=== PATIENT | female | born 1950 | race Caucasian/White ===

== ENCOUNTER → 2016-04-21 | Outpatient (CLI) | payer MEDICAID ==
[~2016-04-21] MED LIST: ALBUTEROL0.09 MG/A2 IH; ALBUTEROL2.5 MG/0.5 INH; AMITRIPTYLINE10 MG PO; ASMANEX220 MCG INH; AUGMENTIN 875-875 MG PO; CHILDREN'S CLEA10 MG PO; CIPRO250 MG PO; CLEOCIN150 MG PO; CRESTOR10 MG; CYCLOBENZAPRINE10 MG PO; DEXILANT60 M1 PO; DULERA 200 MCG8.8 GM IH; DUONEB 3 MG/3 ML3 M1 INH; FLEXERIL10 MG PO; HYDROCODONE BIT1 T11 PO; K-DUR20 MEQ PO; KCL; LORATADINE10 M1; MAGNESIUM400 MG PO; MAXZIDE 25 MG-31 TAB PO; METFORMIN500 MG PO; MIRALAX POWDER17 G1 PO; MOBIC15 MG PO; NEBULIZER; NORVASC5 MG PO; OMNICEF300 MG PO; POTASSIUM CHLO10 ME5 PO; POTASSIUM20 MEQ PO; PREDNICOT20 MG PO; PREDNISONE10 MG PO; PRILOSEC40 M1 PO; PYRIDIUM200 MG PO; RESTASIS0.05% OPH; SINGULAIR10 MG PO; TESSALON PERLE200 MG PO; VENTOLIN H0.09 MG/AC INH; VICODIN ES 7501 TA1 PO; WARFARIN SODIUM5 MG; ZIAC 2.5 MG-6.25 MG; ZIAC 5 MG-6.251 TAB PO; ZITHROMAX Z PA250 MG PO; ZITHROMAX250 MG PO; ZOLOFT25 MG PO; ZYVOX600 MG PO; [UNRECOGNIZED DRUG - OTHER]
[2016-04-21 09:46] LABS: BILIRUBIN NEGATIVE (NEGATIVE); BLOOD NEGATIVE (NEGATIVE); CLARITY SL CLOUDY (CLEAR); COLOR YELLOW (YELLOW); GLUCOSE NEGATIVE (NEGATIVE); KETONE NEGATIVE (NEGATIVE); LEUKO ESTERASE NEGATIVE (NEGATIVE); NITRITE NEGATIVE (NEGATIVE); PH 6.5 (5.0-9.0); PROTEIN NEGATIVE (NEGATIVE); UROBILINOGEN 0.2 E.U./dl (0.2-1.0)
[2016-04-21 09:58] LABS: ALBUMIN 3.9 gm/dl (3.1-4.5); ALKALINE PHOSPHATASE 125 U/L (45-117); BILIRUBIN, DIRECT < 0.1 mg/dL (0.0-0.2); BILIRUBIN, TOTAL 0.4 mg/dl (0.2-1.0); BUN 17 mg/dl (7-24); CARBON DIOXIDE 33 mmol/L (21-32); CHLORIDE 102 mmol/L (98-107); CHOLESTEROL 296 mg/dL (<200); EST GLOM FILT AFRICAN AMERICAN > 60 ml/min; GLUCOSE 124 mg/dL (65-99); HDL CHOLESTEROL 52 mg/dl (40-60); LDL CHOLESTEROL 205 mg/dL (9-159); POTASSIUM 4.1 mmol/L (3.5-5.1); SGOT/AST 15 IU/L (3-35); SGPT/ALT 26 U/L (12-78); SODIUM 143 mmol/L (136-145); TOTAL PROTEIN 7.2 gm/dL (6.4-8.2); TRIGLYCERIDES 195 mg/dl (<150); VLDL CHOLESTEROL 39 mg/dL (6-40)
[2016-04-21 10:21] LABS: HEMOGLOBIN A1c 6.4 % (4.8-5.6)
[2016-04-21 10:23] LABS: BACTERIA 2+; EPITHELIAL CELLS 15-20; MUCOUS 2+
== END | disposition home or self-care (01) ==
LOC: LAB 09:03
PROVIDERS: Internal Medicine
DX: E11.65 Type 2 diabetes mellitus with hyperglycemia (principal); E87.6 Hypokalemia; E55.9 Vitamin D deficiency, unspecified; E78.5 Hyperlipidemia, unspecified

== ENCOUNTER → 2016-12-19 | Outpatient (CLI) | payer OTHER ==
[2016-12-19 09:32] LABS: BASO # 0.1 10*3/uL (0.0-0.1); BASO % 0.6 % (0.0-1.0); EOS # 0.3 10*3/uL (0.0-0.4); EOS % 3.8 % (1.0-4.0); HEMATOCRIT 42.7 % (37.0-47.0); HEMOGLOBIN 14.1 g/dl (12.0-16.0); LYMPH # 3.7 10*3/uL (1.3-4.4); LYMPH % 46.2 % (27.0-41.0); MEAN CELL VOLUME 84.9 fl (81.0-99.0); MEAN PLATELET VOLUME 10.1 fl (9.6-12.3); MONO # 0.6 10*3/uL (0.1-1.0); MONO % 7.2 % (3.0-9.0); NEUT # 3.4 10*3/uL (2.3-7.9); NEUT % 42.1 % (47.0-73.0); PLATELET COUNT AUTOMATED 288 10*3/uL (130-400); RED BLOOD COUNT 5.03 10*6/uL (4.10-5.10); RED CELL DISTRI WIDTH 12.8 % (0-14.5); WHITE BLOOD COUNT 8.1 10*3/uL (4.8-10.8)
[2016-12-19 09:54] LABS: ALKALINE PHOSPHATASE 137 U/L (45-117); BILIRUBIN, DIRECT < 0.1 mg/dL (0.0-0.2); BUN 17 mg/dl (7-24); CHLORIDE 101 mmol/L (98-107); CHOLESTEROL 314 mg/dL (<200); CREATININE 0.78 mg/dL (0.55-1.02); HDL CHOLESTEROL 48 mg/dl (40-60); LDL CHOLESTEROL 228 mg/dL (9-159); SGOT/AST 21 IU/L (3-35); SGPT/ALT 30 U/L (12-78); SODIUM 140 mmol/L (136-145); THYROXINE (T4) TOTAL 11.3 ug/dl (4.8-13.9); TOTAL PROTEIN 7.7 gm/dL (6.4-8.2); TRIGLYCERIDES 188 mg/dl (<150); VLDL CHOLESTEROL 38 mg/dL (6-40)
== END | disposition home or self-care (01) ==
LOC: LAB 09:07
PROVIDERS: Family Medicine
DX: I10 Essential (primary) hypertension (principal); E11.9 Type 2 diabetes mellitus without complications

== ENCOUNTER → 2017-07-16 | Outpatient (CLI) | payer OTHER ==
[2017-07-16 09:26] LABS: BASO # 0.1 10*3/uL (0.0-0.1); BASO % 0.8 % (0.0-1.0); EOS # 0.3 10*3/uL (0.0-0.4); EOS % 2.7 % (1.0-4.0); HEMATOCRIT 43.9 % (37.0-47.0); HEMOGLOBIN 14.7 g/dl (12.0-16.0); LYMPH % 52.4 % (27.0-41.0); MEAN CELL VOLUME 83.9 fl (81.0-99.0); MEAN CORPUSCULAR HGB 28.1 pg (27.0-31.0); MEAN CORPUSCULAR HGB CONC 33.5 g/dl (33.0-37.0); MEAN PLATELET VOLUME 9.9 fl (9.6-12.3); MONO # 0.6 10*3/uL (0.1-1.0); MONO % 6.7 % (3.0-9.0); NEUT # 3.5 10*3/uL (2.3-7.9); NEUT % 36.9 % (47.0-73.0); PLATELET COUNT AUTOMATED 277 10*3/uL (130-400); RED BLOOD COUNT 5.23 10*6/uL (4.10-5.10); RED CELL DISTRI WIDTH 12.9 % (0-14.5); WHITE BLOOD COUNT 9.5 10*3/uL (4.8-10.8)
[2017-07-16 09:39] LABS: ALBUMIN 3.8 gm/dl (3.1-4.5); ALKALINE PHOSPHATASE 130 U/L (45-117); BILIRUBIN, DIRECT < 0.1 mg/dL (0.0-0.2); BUN 14 mg/dl (7-24); CHLORIDE 102 mmol/L (98-107); CHOLESTEROL 309 mg/dL (<200); CREATININE 0.72 mg/dL (0.55-1.02); HDL CHOLESTEROL 45 mg/dl (40-60); LDL CHOLESTEROL 220 mg/dL (9-159); SGOT/AST 19 IU/L (3-35); SGPT/ALT 31 U/L (12-78); SODIUM 142 mmol/L (136-145); TOTAL PROTEIN 7.5 gm/dL (6.4-8.2); TRIGLYCERIDES 218 mg/dl (<150); VLDL CHOLESTEROL 44 mg/dL (6-40)
== END | disposition home or self-care (01) ==
LOC: LAB 08:51
PROVIDERS: Family Medicine
DX: E11.9 Type 2 diabetes mellitus without complications (principal); I10 Essential (primary) hypertension; E55.9 Vitamin D deficiency, unspecified; E87.6 Hypokalemia

== ENCOUNTER → 2018-01-10 | Outpatient (CLI) | payer OTHER | END | disposition home or self-care (01) | LOC: CT 12:51 | DX: M48.02 Spinal stenosis, cervical region (principal); R90.82 White matter disease, unspecified; M79.601 Pain in right arm; R51 Headache ==

== ENCOUNTER → 2018-04-18 | Outpatient (CLI) | payer OTHER ==
[2018-04-19 07:07] LABS: HEPATITIS B SURFACE AG Negative (Negative); HEPATITIS C VIRUS ANTIBODY <0.1 s/co (0.0-0.9)
== END | disposition home or self-care (01) ==
LOC: LAB 09:09 → US 09:30
PROVIDERS: Internal Medicine
DX: R94.5 Abnormal results of liver function studies (principal); E11.9 Type 2 diabetes mellitus without complications; I10 Essential (primary) hypertension; E78.5 Hyperlipidemia, unspecified

== ENCOUNTER 2018-07-02 08:49 | Inpatient (IN) | payer OTHER ==
[~2018-07-02] VITALS: Ht 167.6 cm; Wt 76.2 kg
--- NOTE | ~2018-07-02 | PR ---
[place], [place] PROGRESS NOTE [id number] #: [id number] ROOM: 520 DOCTOR: KOLBY DAVID MD,DAVID BIRTHDATE: [birth year] DOS: 07/04/2018 PULMONARY PROGRESS NOTE SUBJECTIVE: The patient noted comfortable at this time, resting in the bed, has not been noted any ongoing acute complaints this morning. Shortness of breath and cough. The patient noted the symptoms have been progressively resolving. Sputum expectoration noted small at this time. She has reported significant improvement in respiratory symptoms in past 24 hours of current medical management. OBJECTIVE: VITAL SIGNS: Normal temperature, respiratory rate 20, heart rate 96, blood pressure 60/88, pulse oxygen saturation on room air is 95% saturation. HEENT: Head was atraumatic. Eyes nonicterus. NECK: Supple. CARDIOVASCULAR: S1, S2 audible. LUNGS: Without any wheeze or crackles. ABDOMEN: Soft, nontender. Bowel sounds present. EXTREMITIES: No acute change. IMPRESSION: Progressive resolution improvement of the acute exacerbation of bronchial asthma and acute bronchitis with current medical management. Influenza virus assessment, the patient noted negative. The respiratory virus panel was also ordered, at this time was not available. Sputum culture was also ordered, which was received by the lab yesterday, but no reports has been available. Gram stain and culture. PLAN OF TREATMENT: The patient could be discharged home on empiric antibiotic, tapering dose of prednisone. Outpatient followup cultures need to be monitored to make any other additional changes. DAVID JARRETT MD CM:PNTRANS [id number] DAVID DAVID MD 07/15/18 1109 interface
--- NOTE | ~2018-07-02 | DS ---
[place], [place] DISCHARGE SUMMARY NAME: WICHO AWAN [facility] #: [id number] UNIT #: [id number] ROOM: 520 DOCTOR: JAMI EASON MD BIRTHDATE: [birth year] DOS: 07/04/2018 DIAGNOSES: 1. Severe persistent asthma with acute exacerbation. 2. Chronic atrial fibrillation, on long-term use of anticoagulants. 3. Benign hypertension. 4. History of obstructive sleep apnea. 5. Hyperlipidemia. DISCHARGE MEDICATIONS: Same as on admission. The new prescriptions given were tapering dose of prednisone and doxycycline 100 b.i.d. Medications same as admission includes Ventolin p.r.n., Dulera 200 daily, DuoNeb q 4h., amitriptyline 10 daily, Eliquis 5 b.i.d., Dexilant 60 daily, loratadine 10 daily, mag oxide 400 daily, metformin 250 b.i.d., montelukast 10 daily, Rythmol 150 q. 8h, rivastigmine 1.5 b.i.d., and simvastatin 5 mg at bedtime. HOSPITAL COURSE: The patient is a 67-year-old who comes in with complaints of cough and shortness of breath. The patient has received both outpatient steroids and antibiotics without much improvement, continued to complain of cough and so she was brought to the office. She was found to have significant bronchospasm and tachypnea. She was admitted. After admission, she was placed on IV steroids and antibiotics. Chest x-ray and routine labs ordered. Dr. Ricci was consulted. Continue on her home medications. She has improved very well. The bronchospasm has resolved. Chest x-ray is negative. Flu titer was negative. Routine labs were also normal. The patient is stable. Plan is to discharge her to home today to follow up as an outpatient. JAMI EASON MD CM:HUGO [id number] JAMI EASON MD 07/04/18 1124 interface
--- NOTE | ~2018-07-02 | CON ---
[place], [place] REPORT OF CONSULTATION NAME: WICHO AWAN [facility] #: [id number] UNIT #: [id number] ROOM: 520 DOCTOR: DAVID GUTIÉRREZ MD BIRTHDATE: [birth year] DOS: 07/03/2018 PULMONARY CONSULTATION, EVALUATION AND MANAGEMENT REASON FOR CONSULTATION: Assessment of nonresolving acute exacerbation of bronchial asthma, failed outpatient treatment. CONSULTATION REQUESTED BY: Dr. Anju Shi. HISTORY OF PRESENT ILLNESS: This is a 67-year-old white female patient with known history of complicated severe persistent bronchial asthma, allergic rhinitis, has been seen in my office regularly. She has been seen in the office. The patient's last visit was on 06/13/2018. The patient has been getting symptoms of coughing, chest congestion intermittently. She has been treated with the respiratory medication as Ceftin and Tessalon Perles. Previously, she has taken Diflucan for the oral thrush as well and also received antibiotic, corticosteroids by the primary care physician. The patient has been admitted to the hospital as the patient presented to the Emergency Room, her symptoms of shortness of breath has been noted gradually worsening. The cough has been reported with small amount of greenish sputum expectoration, which were noted previously clear. She denies symptoms of fever or chills. She does have symptoms of shortness of breath and wheezing associated with current symptoms. The patient has been assessed in the Emergency Room and hospital under care of Dr. Anju Shi on 07/03/2018, early this morning. She has not reported any changes in the symptoms except partial improvement reported for the last few hours of hospitalization. Other symptom as stated, remains unchanged. PAST MEDICAL HISTORY: 1. History of uncomplicated severe persistent bronchial asthma. 2. Allergic rhinitis. 3. Essential hypertension. 4. Type 2 diabetes mellitus. 5. Obstructive sleep apnea disorder. 6. Gastroesophageal reflux. 7. Permanent atrial fibrillation. 8. Hypercholesterolemia. 9. Mild to moderate obesity. PAST SURGICAL HISTORY: 1. Tubal ligation. 2. Fusion of the cervical neck. 3. Right hand ORIF. 4. Hemorrhoidectomy. SOCIAL HISTORY: The patient is and lives at home. She has four children. The patient has been noted with tobacco use, started at age [age] years old, 2 packs of cigarettes per day until 1994. FAMILY HISTORY: This patient's father history was unknown. Mother patient at 52-year-old with complication of stroke. [place], [place] REPORT OF CONSULTATION NAME: WICHO AWAN [facility] #: [id number] UNIT #: [id number] ROOM: [facility] DOCTOR: DAVID GUTIÉRREZ MD BIRTHDATE: [birth year] HOME MEDICATIONS: The patient used on a regular basis Norvasc, Singulair, Restasis metformin, amitriptyline, inhaler, Flonase, Arnuity Ellipta, Ventolin HFA, rivastigmine, Dexilant, simvastatin, Claritin, Eliquis, propafenone, metoprolol tartrate, and albuterol nebulizer. Current medications which has been started on this admission, use of all the home medications and besides that Solu-Medrol 30 mg every 8 hours, albuterol sulfate, levalbuterol q. 6 hours. The patient was also receiving the Zithromax. DRUG ALLERGIES: 1. PERCOCET. 2. DOXYCYCLINE. 3. BACTRIM. PHYSICAL EXAMINATION: GENERAL: The patient is a 67-year-old female, currently sitting on the bed without any distress this morning. Height of 5 feet 6 inches, weight 168 pounds, BMI 27. VITAL SIGNS: Normal temperature, respiratory rate of 20, heart rate 90, blood pressure 137/88 - 142/80. Pulse oxygen saturation recorded at rest on room air 94% saturation. HEENT: Head was atraumatic. Eyes nonicterus. NECK: Supple. CARDIOVASCULAR: S1, S2 is audible. LUNGS: The patient was noted with decreased breath sounds, [id number] expiratory wheezing. There were no crackles. ABDOMEN: Soft, nontender. Moderate obesity, bowel sounds present. EXTREMITIES: No edema. MUSCULOSKELETAL: Without any deformities. CENTRAL NERVOUS SYSTEM: Cranial nerves 2-12 intact. SKIN: No lesions or rashes. LABORATORY DATA: The patient's chest x-ray, which was done yesterday has no acute pulmonary infiltration. BMP this morning, glucose 189, BUN and creatinine normal. CBC this morning, WBC count 10.3, hemoglobin and hematocrit normal. The eosinophils was noted as 0.1%. IMPRESSION: 1. Acute exacerbation of bronchial asthma, acute tracheobronchitis, failed outpatient treatment, noted current cough with sputum expectoration: 2. The patient with history of allergic rhinitis and obstructive sleep apnea disorder. PLAN OF TREATMENT: Continue the intravenous Solu-Medrol and the antibiotics. Respiratory culture was ordered for the current assessment. Respiratory virus panel also to be done to exclude any viral etiology of the patient's current acute persistent bronchitis, not resolving. Influenza nasopharyngeal swab will be also taken as well. Additional treatment changes will be ordered based on the progression of the illness. [place], [place] REPORT OF CONSULTATION NAME: WICHO AWAN UNIT #: [id number] ROOM: [facility] DOCTOR: KOLBY DAVID MD,DAVID BIRTHDATE: [birth year] Thank you for allowing me to participate in the care of this patient. DAVID JARRETT MD CM:CONSTR:REPORT OF CONSULTATION 1502 07/15/18 1107 interface
--- NOTE | ~2018-07-02 | WRIGHTHP ---
[place], [place] PATIENT HISTORY AND PHYSICAL EXAM NAME: WICHO AWAN [facility] #: [id number] UNIT #: [id number] ROOM: 520 DOCTOR: JAMI EASON MD BIRTHDATE: [birth year] DOS: 07/03/2018 HISTORY OF PRESENT ILLNESS: This patient is very well known to us. She comes in with complaints of cough and increasing difficulty breathing. The patient states that she has been on antibiotics twice, was treated by Dr. Ricci then she was seen by [facility] and was given steroids, antibiotics, and continued to get worse. She denies having any chest pains, palpitations, does not have any fever or chills, has a cough, which is productive of scant amounts of sputum. PAST MEDICAL HISTORY: Significant for: 1. Chronic atrial fibrillation with recent hospitalization. 2. Bronchial asthma. 3. Benign hypertension. 4. Type 2 diabetes mellitus. 5. Mixed hyperlipidemia. 6. Chronic back pain. 7. Primary osteoarthritis. 8. History of multiinfarct dementia. MEDICATIONS: Medications that she is on are ProAir HFA, Dulera, amitriptyline, Eliquis, Dexilant, loratadine, meloxicam, metformin, metoprolol, montelukast, Rythmol, rivastigmine, simvastatin. SOCIAL HISTORY: Nonsmoker, does not use any alcohol. Lives at home with her . PHYSICAL EXAMINATION: GENERAL: She is awake and alert and oriented. VITAL SIGNS: Blood pressure is 137/88, pulse of 90, respirations 24, and temperature 98.2. LUNGS: Diminished breath sounds, scattered wheezes and rhonchi. HEART: Regular. ABDOMEN: Obese. EXTREMITIES: Without any edema. ASSESSMENT AND PLAN: 1. The patient presents with acute dyspnea and tachycardia, and she is tachypneic with audible wheezing. She has failed outpatient treatment with steroids and antibiotics. The patient will be admitted. IV steroids and antibiotics will be ordered. Dr. Ricci will be consulted. Chest x-ray and routine labs will be ordered. 2. Bronchial asthma, longstanding history with acute exacerbation. 3. Chronic atrial fibrillation, controlled on long-term use of anticoagulants. 4. Type 2 diabetes mellitus, non-insulin dependent. Check blood sugars twice daily, coverage scale. [place], [place] PATIENT HISTORY AND PHYSICAL EXAM NAME: WICHO AWAN UNIT #: [id number] ROOM: [facility][note 3] DOCTOR: JAMI EASON MD BIRTHDATE: [birth year] JAMI EASON MD CM:HISPHYS:PATIENT HISTORY AND PHYSICAL EXAMINATION [phone] JAMI EASON MD 07/03/18 0927 interface
--- NOTE | ~2018-07-02 | PR ---
[place], [place] PROGRESS NOTE NAME: WICHO AWAN [facility] #: [id number] UNIT #: [id number] ROOM: 520 DOCTOR: JAMI EASON MD BIRTHDATE: [birth year] DOS: 07/04/2018 SUBJECTIVE: The patient is doing much better. Her shortness of breath and cough have improved. OBJECTIVE: VITAL SIGNS: Graphic trend shows blood pressure 134/84, pulse of 81, respirations 18, temperature 98.1. LUNGS: Diminished breath sounds, clear. HEART: Regular. ABDOMEN: Soft. EXTREMITIES: Without any edema. ASSESSMENT AND PLAN: 1. Severe persistent asthma with acute exacerbation, failed outpatient regimen, is doing much better with the IV steroids and antibiotics. The plan is to discharge her to home today since the bronchospasm has resolved. 2. History of chronic atrial fibrillation. Continue home medications, control heart rate. JAMI EASON MD CM:PNTRANS [id number] JAMI EASON MD 07/04/18 1526 interface
[2018-07-02 14:00] VITALS: BP 142/80
--- NOTE | 2018-07-02 14:02 | NUR ---
A 67, admitted to 5E, under the services of JAMI Ha MD with a diagnosis of Bronchitis. Chief complaint is Shortness of Breath. Patient arrived via wheel chair from [place]. Monitor applied. Initial assessment completed. Vital signs taken and recorded. JAMI HA MD notified of admission to the unit. Orders received. See assessment for past medical history, medications and allergies. Patient and/or family oriented to unit. [address] visitation policy reviewed. Clothing/patient valuable form completed. ROGER INIGUEZ
--- NOTE | 2018-07-02 14:59 | NUR ---
Contacted home pharmacy to fax updated med list.
[2018-07-02 16:00] VITALS: BP 157/79
--- NOTE | 2018-07-02 16:24 | NUR ---
Spoke with Dr. Ricci regarding consult. No new orders physician to follow up at bedside.
[2018-07-02] MEDS ORDERED: DEXILANT60 M1 PO (19:45)
[2018-07-02] MEDS ORDERED: SIMVASTATIN5 MG PO (19:46)
[2018-07-02] MEDS ORDERED: STRIVERDI RESPIM4 GM INH (19:48)
[2018-07-02] MEDS ORDERED: PROPAFENONE HC150 MG PO (19:49)
[2018-07-02] MEDS ORDERED: ELIQUIS5 M1 PO (19:50)
[2018-07-02] MEDS ORDERED: LOPRESSOR50 M1 PO (19:51)
[2018-07-02] MEDS ORDERED: RIVASTIGMINE T1.5 M1 PO (19:52)
[2018-07-02] MEDS ORDERED: KEFLEX500 M1 PO (19:53)
[2018-07-02 20:00] VITALS: BP 149/94
--- NOTE | 2018-07-02 20:18 | NUR ---
Spent a long while talking with patients daughter, Aliyah over family concerns of patients condition. Home medications and treatment plan were reviewed. Family is comfortable very pleased that Dr. Shi and Dr. Ricci will be managing patients care. They feel she is in good hands.
[2018-07-03] VITALS: BP 137/88
[2018-07-03 08:00] VITALS: BP 148/88
[2018-07-03 10:02] LABS: BASO % 0.2 % (0.0-1.0); EOS % 0.1 % (1.0-4.0); HEMATOCRIT 44.7 % (37.0-47.0); HEMOGLOBIN 14.9 g/dl (12.0-16.0); LYMPH # 1.5 10*3/uL (1.3-4.4); LYMPH % 14.8 % (27.0-41.0); MEAN CELL VOLUME 86.1 fl (81.0-99.0); MEAN CORPUSCULAR HGB 28.7 pg (27.0-31.0); MEAN CORPUSCULAR HGB CONC 33.3 g/dl (33.0-37.0); MEAN PLATELET VOLUME 9.7 fl (9.6-12.3); MONO # 0.1 10*3/uL (0.1-1.0); MONO % 1.3 % (3.0-9.0); NEUT # 8.5 10*3/uL (2.3-7.9); NEUT % 82.6 % (47.0-73.0); PLATELET COUNT AUTOMATED 339 10*3/uL (130-400); RED BLOOD COUNT 5.19 10*6/uL (4.10-5.10); RED CELL DISTRI WIDTH 13.3 % (0-14.5); WHITE BLOOD COUNT 10.3 10*3/uL (4.8-10.8)
[2018-07-03 10:26] LABS: BUN 12 mg/dl (7-24); CHLORIDE 102 mmol/L (98-107); CREATININE 0.78 mg/dL (0.55-1.02); POTASSIUM 3.9 mmol/L (3.5-5.1); SODIUM 138 mmol/L (136-145)
--- NOTE | 2018-07-03 11:00 | NUR ---
Power Electronics Engineer in to talk to patient. Patient states lives at home with her and grandsons. There are 0 steps in the home. Physician: Dr. Anju Shi [facility]acy: [facility] Home health services: none Patient's level of ADLs: MINIMAL ASSIST Patient has working utilities: yes DME: cane, nebulizer Follow-up physician's appointment after d/c: she prefers to make her own follow up appt after discharge Does patient want to access PORTAL?: no Discharge plan discussed with patient. She lives at home with her and grandsons. She is independent in her ADLs and ambulates with a cane. Discussed home health care services and she denies any home needs at this time. When medically stable she will be discharged to home. SID GAVIN
[2018-07-03 16:00] VITALS: BP 154/74
[2018-07-03 20:00] VITALS: BP 150/88
[2018-07-04] VITALS: BP 134/84
--- NOTE | 2018-07-04 07:33 | NUR ---
24 HR chart check completed.
[2018-07-04 08:00] VITALS: BP 142/92; BP 160/88
[2018-07-04] MEDS ORDERED: DOXYCYCLINE100 M3 PO (08:34)
[2018-07-04] MEDS ORDERED: PREDNISONE5 MG PO (08:34)
--- NOTE | 2018-07-04 09:48 | NUR ---
Discharge instructions reviewed with patient/family. Patient receptive and verbalizes understanding. Follow-up care arranged. Written instructions given to patient/family. JUAN PABLO MENSAH
[2018-07-09 08:09] LABS: ADENOVIRUS Negative (Negative); INFLUENZA A Negative (Negative); INFLUENZA B Negative (Negative); METAPNEUMOVIRUS Negative (Negative); PARAINFLUENZA 1 Negative (Negative); PARAINFLUENZA 2 Negative (Negative); PARAINFLUENZA 3 Negative (Negative); RHINOVIRUS Positive (Negative); RSV A Negative (Negative); RSV B Negative (Negative)
== END 2018-07-04 09:48 | disposition home or self-care (01) | DRG 203 ==
LOC: RAD 08:49 → 5E 13:03
PROVIDERS: Internal Medicine Critical Care Medicine; ADMIT Internal Medicine
DX: J45.51 Severe persistent asthma with (acute) exacerbation (principal); J20.9 Acute bronchitis, unspecified; I48.2 Chronic atrial fibrillation; G47.33 Obstructive sleep apnea (adult) (pediatric); E78.5 Hyperlipidemia, unspecified; E11.9 Type 2 diabetes mellitus without complications; M19.90 Unspecified osteoarthritis, unspecified site; I10 Essential (primary) hypertension; Z88.2 Allergy status to sulfonamides; Z88.6 Allergy status to analgesic agent; Z88.1 Allergy status to other antibiotic agents; Z88.8 Allergy status to other drugs, medicaments and biological substances; Z79.899 Other long term (current) drug therapy; Z98.1 Arthrodesis status; Z98.51 Tubal ligation status; Z82.3 Family history of stroke

== ENCOUNTER → 2018-07-31 | Outpatient (CLI) | payer OTHER ==
[~2018-07-31] MED LIST changes: +DOXYCYCLINE100 M3 PO; +ELIQUIS5 M1 PO; +KEFLEX500 M1 PO; +LOPRESSOR50 M1 PO; +PREDNISONE5 MG PO; +PROPAFENONE HC150 MG PO; +RIVASTIGMINE T1.5 M1 PO; +SIMVASTATIN5 MG PO; +STRIVERDI RESPIM4 GM INH
== END | disposition home or self-care (01) ==
LOC: MRI 13:48
DX: R90.82 White matter disease, unspecified (principal)

== ENCOUNTER → 2019-02-14 | Outpatient (CLI) | payer OTHER ==
[2019-02-14 13:47] LABS: BASO # 0.1 10*3/uL (0.0-0.1); BASO % 0.8 % (0.0-1.0); EOS # 0.8 10*3/uL (0.0-0.4); EOS % 10.7 % (1.0-4.0); HEMATOCRIT 43.4 % (37.0-47.0); LYMPH # 3.4 10*3/uL (1.3-4.4); LYMPH % 43.4 % (27.0-41.0); MEAN CELL VOLUME 86.1 fl (81.0-99.0); MEAN CORPUSCULAR HGB 27.8 pg (27.0-31.0); MEAN CORPUSCULAR HGB CONC 32.3 g/dl (33.0-37.0); MEAN PLATELET VOLUME 10.3 fl (9.6-12.3); MONO # 0.5 10*3/uL (0.1-1.0); MONO % 6.3 % (3.0-9.0); NEUT % 38.7 % (47.0-73.0); PLATELET COUNT AUTOMATED 287 10*3/uL (130-400); RED BLOOD COUNT 5.04 10*6/uL (4.10-5.10); RED CELL DISTRI WIDTH 12.9 % (0-14.5); WHITE BLOOD COUNT 7.8 10*3/uL (4.8-10.8)
== END | disposition home or self-care (01) ==
LOC: LAB 12:41
PROVIDERS: Internal Medicine Critical Care Medicine
DX: Z79.899 Other long term (current) drug therapy (principal)

== ENCOUNTER → 2019-12-15 | Outpatient (CLI) | payer OTHER ==
[2019-12-15 13:56] LABS: BASO % 0.1 % (0.0-1.0); HEMATOCRIT 44.3 % (37.0-47.0); LYMPH # 3.6 10*3/uL (1.3-4.4); LYMPH % 50.9 % (27.0-41.0); MEAN CORPUSCULAR HGB CONC 32.5 g/dl (33.0-37.0); MEAN PLATELET VOLUME 9.8 fl (9.6-12.3); MONO # 0.5 10*3/uL (0.1-1.0); MONO % 7.3 % (3.0-9.0); NEUT % 41.4 % (47.0-73.0); PLATELET COUNT AUTOMATED 237 10*3/uL (130-400); RED BLOOD COUNT 5.34 10*6/uL (4.10-5.10); WHITE BLOOD COUNT 7.2 10*3/uL (4.8-10.8)
[2019-12-15 14:14] LABS: ALBUMIN 4.1 gm/dl (3.1-4.5); ALKALINE PHOSPHATASE 134 U/L (45-117); BUN 13 mg/dl (7-24); CHLORIDE 104 mmol/L (98-107); CHOLESTEROL 255 mg/dL (<200); CREATININE 0.74 mg/dL (0.55-1.02); FREE T4 0.97 ng/dl (0.76-1.46); HDL CHOLESTEROL 55 mg/dl (40-60); LDL CHOLESTEROL 167 mg/dL (9-159); SGOT/AST 21 IU/L (3-35); SGPT/ALT 36 U/L (12-78); SODIUM 138 mmol/L (136-145); TOTAL PROTEIN 7.5 gm/dL (6.4-8.2); TRIGLYCERIDES 167 mg/dl (<150); VLDL CHOLESTEROL 33 mg/dL (6-40)
[2019-12-15 16:20] LABS: VITAMIN D, 25-HYDROXY 84.4 ng/mL (30-100)
== END | disposition home or self-care (01) ==
LOC: LAB 13:36
PROVIDERS: ATTEND Internal Medicine
DX: I48.21 Permanent atrial fibrillation (principal); J45.50 Severe persistent asthma, uncomplicated; F01.50 Vascular dementia, unspecified severity, without behavioral disturbance, psychotic disturbance, mood disturbance, and anxiety; I10 Essential (primary) hypertension; E11.9 Type 2 diabetes mellitus without complications; R53.81 Other malaise; R74.8 Abnormal levels of other serum enzymes; R79.89 Other specified abnormal findings of blood chemistry

== ENCOUNTER → 2019-12-24 | Outpatient (CLI) | payer OTHER | END | disposition home or self-care (01) | LOC: CT 10:02 | PROVIDERS: ATTEND Internal Medicine | DX: I67.82 Cerebral ischemia (principal); G93.89 Other specified disorders of brain ==

== ENCOUNTER → 2020-11-24 | Outpatient (CLI) | payer OTHER ==
[2020-11-24 09:50] LABS: BASO % 0.1 % (0.0-1.0); HEMATOCRIT 42.6 % (37.0-47.0); LYMPH # 3.3 10*3/uL (1.3-4.4); LYMPH % 48.7 % (27.0-41.0); MEAN CORPUSCULAR HGB 27.1 pg (27.0-31.0); MEAN CORPUSCULAR HGB CONC 31.9 g/dl (33.0-37.0); MEAN PLATELET VOLUME 9.9 fl (9.6-12.3); MONO # 0.6 10*3/uL (0.1-1.0); MONO % 8.1 % (3.0-9.0); NEUT # 2.9 10*3/uL (2.3-7.9); NEUT % 42.8 % (47.0-73.0); PLATELET COUNT AUTOMATED 268 10*3/uL (130-400); RED BLOOD COUNT 5.01 10*6/uL (4.10-5.10); RED CELL DISTRI WIDTH 12.9 % (0-14.5); WHITE BLOOD COUNT 6.8 10*3/uL (4.8-10.8)
[2020-11-24 10:07] LABS: ALBUMIN 3.9 gm/dl (3.1-4.5); ALKALINE PHOSPHATASE 161 U/L (45-117); BUN 12 mg/dl (7-24); CHLORIDE 103 mmol/L (98-107); CHOLESTEROL 164 mg/dL (<200); CREATININE 0.74 mg/dL (0.55-1.02); FREE T4 0.87 ng/dl (0.76-1.46); LDL CHOLESTEROL 81 mg/dL (9-159); POTASSIUM 3.9 mmol/L (3.5-5.1); SGOT/AST 22 IU/L (3-35); SGPT/ALT 39 U/L (12-78); SODIUM 139 mmol/L (136-145); TOTAL PROTEIN 7.4 gm/dL (6.4-8.2); TRIGLYCERIDES 143 mg/dl (<150)
== END | disposition home or self-care (01) ==
LOC: LAB 09:18
PROVIDERS: ATTEND Internal Medicine
DX: Z00.00 Encounter for general adult medical examination without abnormal findings (principal); I10 Essential (primary) hypertension; E78.2 Mixed hyperlipidemia; E11.9 Type 2 diabetes mellitus without complications; E55.9 Vitamin D deficiency, unspecified

== ENCOUNTER → 2020-12-06 | Outpatient (CLI) | payer OTHER | END | disposition home or self-care (01) | LOC: CARD 00:02 | PROVIDERS: ATTEND Internal Medicine | DX: R07.9 Chest pain, unspecified (principal) ==

== ENCOUNTER → 2020-12-22 | Outpatient (CLI) | payer OTHER | END | disposition home or self-care (01) | LOC: US 12-10 13:30 | PROVIDERS: ATTEND Internal Medicine | DX: R42 Dizziness and giddiness (principal) ==

== ENCOUNTER → 2020-12-31 | Outpatient (CLI) | payer OTHER | END | disposition home or self-care (01) | LOC: COVID19 15:38 | PROVIDERS: ATTEND Internal Medicine | DX: Z11.52 Encounter for screening for COVID-19 (principal) ==

== ENCOUNTER → 2021-08-17 | Outpatient (CLI) | payer OTHER | END | disposition home or self-care (01) | LOC: RAD 13:36 | PROVIDERS: ATTEND Internal Medicine | DX: M85.852 Other specified disorders of bone density and structure, left thigh (principal); Z78.0 Asymptomatic menopausal state ==

== ENCOUNTER → 2021-08-18 | Outpatient (CLI) | payer OTHER ==
[2021-08-18 10:38] LABS: BASO % 0.2 % (0.0-1.0); LYMPH # 2.9 10*3/uL (1.3-4.4); LYMPH % 27.8 % (27.0-41.0); MEAN CELL VOLUME 81.9 fl (81.0-99.0); MEAN CORPUSCULAR HGB 26.5 pg (27.0-31.0); MEAN CORPUSCULAR HGB CONC 32.4 g/dl (33.0-37.0); MEAN PLATELET VOLUME 9.5 fl (9.6-12.3); NEUT # 6.4 10*3/uL (2.3-7.9); NEUT % 61.5 % (47.0-73.0); PLATELET COUNT AUTOMATED 343 10*3/uL (130-400); RED BLOOD COUNT 5.13 10*6/uL (4.10-5.10); RED CELL DISTRI WIDTH 12.5 % (0-14.5); WHITE BLOOD COUNT 10.4 10*3/uL (4.8-10.8)
== END | disposition home or self-care (01) ==
LOC: LAB 01:11 → MAMMO 10:30
PROVIDERS: ATTEND Internal Medicine
DX: Z12.31 Encounter for screening mammogram for malignant neoplasm of breast (principal); I10 Essential (primary) hypertension; R73.09 Other abnormal glucose; Z13.89 Encounter for screening for other disorder; Z13.0 Encounter for screening for diseases of the blood and blood-forming organs and certain disorders involving the immune mechanism; Z13.1 Encounter for screening for diabetes mellitus; Z13.228 Encounter for screening for other metabolic disorders; Z13.6 Encounter for screening for cardiovascular disorders; Z13.9 Encounter for screening, unspecified

== ENCOUNTER → 2022-01-04 | Outpatient (CLI) | payer OTHER ==
[2022-01-04 10:13] LABS: BASO % 0.2 % (0.0-1.0); HEMATOCRIT 42.4 % (37.0-47.0); LYMPH # 3.7 10*3/uL (1.3-4.4); LYMPH % 43.6 % (27.0-41.0); MEAN CELL VOLUME 82.5 fl (81.0-99.0); MEAN CORPUSCULAR HGB CONC 32.8 g/dl (33.0-37.0); MEAN PLATELET VOLUME 9.9 fl (9.6-12.3); MONO # 0.7 10*3/uL (0.1-1.0); MONO % 8.1 % (3.0-9.0); NEUT % 47.9 % (47.0-73.0); PLATELET COUNT AUTOMATED 263 10*3/uL (130-400); RED BLOOD COUNT 5.14 10*6/uL (4.10-5.10); RED CELL DISTRI WIDTH 13.8 % (0-14.5); WHITE BLOOD COUNT 8.4 10*3/uL (4.8-10.8)
[2022-01-04 10:32] LABS: CHLORIDE 108 mmol/L (98-107); POTASSIUM 4.3 mmol/L (3.5-5.1); SODIUM 142 mmol/L (136-145)
[2022-01-04 10:42] LABS: ALKALINE PHOSPHATASE 152 U/L (45-117); BUN 12 mg/dl (7-24); CHOLESTEROL 159 mg/dL (<200); CREATININE 0.63 mg/dL (0.55-1.02); FREE T4 1.02 ng/dl (0.76-1.46); LDL CHOLESTEROL 70 mg/dL (9-159); SGOT/AST 16 IU/L (3-35); SGPT/ALT 30 U/L (12-78); TOTAL PROTEIN 7.3 gm/dL (6.4-8.2); TRIGLYCERIDES 139 mg/dl (<150)
[2022-01-04 11:35] LABS: VITAMIN D, 25-HYDROXY 83.5 ng/mL (30-100)
== END | disposition home or self-care (01) ==
LOC: LAB 08:28 → US 08:30
PROVIDERS: ATTEND Internal Medicine
DX: Z13.0 Encounter for screening for diseases of the blood and blood-forming organs and certain disorders involving the immune mechanism (principal); Z13.1 Encounter for screening for diabetes mellitus; Z13.220 Encounter for screening for lipoid disorders; E11.9 Type 2 diabetes mellitus without complications; E78.2 Mixed hyperlipidemia; E55.9 Vitamin D deficiency, unspecified; R73.09 Other abnormal glucose; Z13.29 Encounter for screening for other suspected endocrine disorder; Z13.6 Encounter for screening for cardiovascular disorders; Z13.89 Encounter for screening for other disorder; Z13.9 Encounter for screening, unspecified; K82.9 Disease of gallbladder, unspecified; R10.84 Generalized abdominal pain; R10.2 Pelvic and perineal pain

== ENCOUNTER → 2024-07-08 | Outpatient (CLI) | payer OTHER ==
[2024-07-08 10:59] LABS: BASO % 0.3 % (0.0-1.0); HEMATOCRIT 43.1 % (37.0-47.0); MEAN CELL VOLUME 85.7 fl (81.0-99.0); MEAN CORPUSCULAR HGB 28.8 pg (27.0-31.0); MEAN CORPUSCULAR HGB CONC 33.6 g/dl (33.0-37.0); MEAN PLATELET VOLUME 10.3 fl (9.6-12.3); MONO # 0.6 10*3/uL (0.1-1.0); MONO % 8.9 % (3.0-9.0); NEUT # 2.4 10*3/uL (2.3-7.9); NEUT % 38.8 % (47.0-73.0); PLATELET COUNT AUTOMATED 230 10*3/uL (130-400); RED BLOOD COUNT 5.03 10*6/uL (4.10-5.10); RED CELL DISTRI WIDTH 12.6 % (0-14.5); WHITE BLOOD COUNT 6.3 10*3/uL (4.8-10.8)
[2024-07-08 11:51] LABS: ALKALINE PHOSPHATASE 119 U/L (46-116); BUN 14 mg/dl (9-23); CHLORIDE 104 mmol/L (98-107); CHOLESTEROL 237 mg/dL (<200); FREE T4 1.16 ng/dl (0.89-1.76); LDL CHOLESTEROL 161 mg/dL (9-159); POTASSIUM 3.7 mmol/L (3.4-5.1); SGPT/ALT 19 U/L (5-49); TRIGLYCERIDES 100 mg/dl (<150)
[2024-07-08 11:52] LABS: VITAMIN D, 25-HYDROXY 99.9 ng/mL (30-100)
== END | disposition home or self-care (01) ==
LOC: LAB 10:22
PROVIDERS: ATTEND Internal Medicine
DX: I10 Essential (primary) hypertension (principal); E11.40 Type 2 diabetes mellitus with diabetic neuropathy, unspecified; E11.65 Type 2 diabetes mellitus with hyperglycemia; E78.2 Mixed hyperlipidemia; R53.83 Other fatigue; E53.9 Vitamin B deficiency, unspecified; E55.9 Vitamin D deficiency, unspecified

== ENCOUNTER → 2024-08-14 | Outpatient (CLI) | payer OTHER | END | disposition home or self-care (01) | LOC: RAD 13:46 | PROVIDERS: ATTEND Internal Medicine | DX: R07.81 Pleurodynia (principal) ==

== ENCOUNTER 2024-10-18 18:04 | Emergency (ER) | payer OTHER ==
[~2024-10-18] VITALS: Ht 157.4 cm; Wt 71.7 kg
[2024-10-18 19:38] LABS: BASO # 0.0 10*3/uL (0.0-0.1); BASO % 0.2 % (0.0-1.0); EOS # 0.0 10*3/uL (0.0-0.4); EOS % 0.0 % (1.0-4.0); MEAN CELL VOLUME 88.0 fl (81.0-99.0); MEAN CORPUSCULAR HGB 29.6 pg (27.0-31.0); MEAN PLATELET VOLUME 9.8 fl (9.6-12.3); MONO # 1.0 10*3/uL (0.1-1.0); MONO % 9.7 % (3.0-9.0); NEUT # 6.5 10*3/uL (2.3-7.9); NEUT % 62.7 % (47.0-73.0); NUCLEATED RED BLOOD CELL 0.0 % (0.0-0.0); NUCLEATED RED BLOOD CELL 0.0 10*3/uL (0.0-0.0); PLATELET COUNT AUTOMATED 283 10*3/uL (130-400); RED CELL DISTRI WIDTH 13.2 % (0-14.5)
[2024-10-18 20:20] LABS: BUN 17 mg/dl (9-23)
== END 2024-10-18 20:30 | disposition home or self-care (01) ==
LOC: ED 18:04
PROVIDERS: Nurse Practitioner Family
DX: L08.9 Local infection of the skin and subcutaneous tissue, unspecified (principal); Z88.6 Allergy status to analgesic agent; Z88.1 Allergy status to other antibiotic agents; Z88.2 Allergy status to sulfonamides; Z79.899 Other long term (current) drug therapy; Z79.84 Long term (current) use of oral hypoglycemic drugs